=== PATIENT | female | born 1965 | race Caucasian/White ===

== ENCOUNTER 2021-06-10 09:09 | Emergency (ER) | payer OTHER ==
[~2021-06-10] VITALS: Ht 160 cm; Wt 100.7 kg
[~2021-06-10 09:09] MED LIST: AMBIEN 5 MG TABL5 M1 PO; GEODON60 MG; LAMICTAL XR100 MG; MOBIC7.5 M1 PO; NORCO 10-325 T1 EACH PO; NORCO 5-325 TA1 EACH PO; OLEPTRO ER150 MG; SEROQUEL 25 MG25 M1 PO; TOPAMAX 100 MG100 MG PO; TRAMADOL 50 MG50 MG PO; VISTARIL 25 MG25 M1 PO; VOLTAREN GEL 1100 G1 TOP; XANAX 0.5 MG0.5 MG PO
[2021-06-10 09:12] VITALS: BP 132/67
[2021-06-10] MEDS ORDERED: NORCO7.5 PO (11:30)
[2021-06-10] MEDS ORDERED: FLEXERIL PO (11:30)
[2021-06-10] MEDS ORDERED: PREDNISONE 20 M20 MG PO (11:30)
== END 2021-06-10 11:35 | disposition home or self-care (01) ==
LOC: ER 09:09
DX: M54.31 Sciatica, right side (principal); M51.9 Unspecified thoracic, thoracolumbar and lumbosacral intervertebral disc disorder; E78.5 Hyperlipidemia, unspecified; Z90.89 Acquired absence of other organs; Z79.1 Long term (current) use of non-steroidal anti-inflammatories (NSAID); Z79.891 Long term (current) use of opiate analgesic; Z79.899 Other long term (current) drug therapy; Z88.5 Allergy status to narcotic agent; Z88.8 Allergy status to other drugs, medicaments and biological substances